=== PATIENT | male | born 1990 | race Caucasian/White ===

== ENCOUNTER 2022-10-26 06:50 | Day surgery (SDC) | payer OTHER ==
[2022-10-26] VITALS (223 sets, daily range): BP systolic 91–140; BP diastolic 39–96
[~2022-10-26] VITALS: Ht 188 cm; Wt 84.0 kg
--- NOTE | 2022-10-26 06:50 | NUR ---
Patient arrived to the ANR suite, identification and demographics confirmed. Patient to room 8, AAO, ambulatory, vitals obtained, ID/allergy/fall bands placed, changed into hospital gown, MARILYN hose, and non-slip socks. Procedure and timeline explained for treatment and discharge. All questions answered and the patient presents no concerns at this time.
[2022-10-26 08:07] LABS: BASO% 0.7 % (0-3); EOS% 2.5 % (0-8); HEMATOCRIT 40.4 % (39.0-50.0); HEMOGLOBIN 12.9 g/dl (14.0-18.0); IMMATURE GRANULOCYTES 0.4 % (0.0-5.0); LYMPH% 26.4 % (15-41); MEAN CELL VOLUME 90.8 fL CALC (80.0-100.0); MEAN CORPUSCULAR HGB CONC 31.9 g/dL CAL (32.0-36.0); NEUT# 3.29 thou/uL (1.82-7.42); RED BLOOD COUNT 4.45 mill/uL (4.70-6.10); RED CELL DISTRI WIDTH 12.7 % (11.5-15.5)
[2022-10-26 08:29] LABS: ALBUMIN 3.8 g/dL (3.2-5.0); ALKALINE PHOSPHATASE 55 u/l (38-126); ANION GAP 8 (6-22 (CALC)); BILIRUBIN, TOTAL 0.2 mg/dL (0.2-1.3); BUN 13 mg/dL (9-20); BUN/CREATININE RATIO 20 (12-20 (CALC)); CARBON DIOXIDE 31 mmol/l (22-30); CHLORIDE 101 mmol/l (95-108); CREATININE 0.6 mg/dL (0.7-1.3); GFR FOR AFR.AMER. > 60 ML/MIN (>=60 (CALC)); GFR OTHER RACES > 60 ML/MIN (>=60 (CALC)); POTASSIUM 3.7 mmol/l (3.5-5.1); SGOT/AST 25 u/l (17-59); SODIUM 137 mmol/l (137-146); TOTAL PROTEIN 6.3 g/dL (6.3-8.2)
--- NOTE | 2022-10-26 09:30 | NUR ---
Patient resting comfortably in bed. Easily aroused, maintains focus, and drifts back to sleep. No signs of active withdrawal or distress noted at this time. Continuous SPO2, rhythm, and respiratory monitoring initiated. IVF @ 250 mL/HR, room air, VSS.
--- NOTE | 2022-10-26 10:30 | NUR ---
MD at bedside with patient discussing treatment and answering any questions or concerns patient might have.
--- NOTE | 2022-10-26 11:14 | NUR ---
Induction Note Patient to ANR procedure room. Time out performed at 1114. Patient placed on monitors, Luciana hugger, bilateral wrist restraints applied for ET tube protection. Versed 5mg given IV push at 1115 Tourniquet applied to right arm Lidocaine 100mg given at 1116 IV push followed by Rocoronium 10mg at 1116 IV push and held for 90 seconds. Propofol bolus of 160mg given at 1117 IV push. Succinylcholine 80mg given IV push at 1117. Smooth intubation with 7.5 ETT. Positive CO2. Positive Auscultation for air exchange. Patient placed on ventilator for spontaneous ventilation. Placed on Propofol IV drip at 1118. OG inserted. Positive air on auscultation. Positive gastric content. Stomach washed at this time. Naltrexone 50mg given via OG tube with Clonidine 0.3 mg given via OG Tube. OG clamped for 45 minutes. Will monitor patient for symptoms of withdrawal and adjust propfol accordingly.
--- NOTE | 2022-10-26 12:15 | NUR ---
OG open note OG open at this time. Gastric content draining into drainage bag. OG to drain for 45 minutes. Propofol will be titrated down based on patient.
--- NOTE | 2022-10-26 13:00 | NUR ---
OG close note Stomach washed at this time. Naltrexone 50 mg with Clonidine 0.1 mg via OG tube. OG will be clamped for 45 minutes.
[2022-10-26] MEDS ORDERED: NALTREXONE50 MG PO (14:07)
[2022-10-26] MEDS ORDERED: CLONIDINE0.1 MG PO (14:07)
[2022-10-26] MEDS ORDERED: KLONOPIN2 MG PO (14:08)
--- NOTE | 2022-10-26 14:30 | NUR ---
OG close note Stomach washed at this time. Naltrexone 50 mg with Clonidine 0.1 mg via OG tube. OG will be clamped for 45 minutes.
--- NOTE | 2022-10-26 16:30 | NUR ---
OG close note Stomach washed at this time. Naltrexone 12.5 mg with Clonidine 0.2 mg via OG tube. OG will be clamped for 30 minutes.
--- NOTE | 2022-10-26 17:20 | NUR ---
Extubation note Closing medications given Benadryl 50mg IV push, Decadron 10mg IV push,Magnesium 4 grams IV, Zofran 8mg IV push, Octreotide 100mcg SC. Stomach washed out prior to extubation. Suctioned gastric content. OG removed. Patient extubated. Propofol Discontinued. Wrist restraints removed. Luciana hugger Removed. See ANR Moderate sedate recovery record for further notes and assessment.
--- NOTE | 2022-10-26 18:10 | NUR ---
Patient transferred to medical-surgical unit. Report given to receiving nurse at bedside. Head to toe assessment, treatment, medications, I/O, IV access reviewed with RN. All questions answered. IVF to continue at 100 ml/hr, on room air, no adventitious breath sounds. Safety precautions in place, bed locked and in lowest position, call light in reach. Handoff of care at the time this note.
--- NOTE | 2022-10-26 18:15 | NUR ---
PT TO MED SURG FROM ANR, REPORT RECIEVED FROM NURSE. PT IS DROWSY AWAKENED TO VOICE. PT HAS NO C/O PAIN AT THIS TIME. IV SITE # 20 RFA AND # [address] CLEAN AND INTACT WITH LR INFUSING AT 100 ML/HR. PT VSS. PT HAS URINAL AT BEDSIDE. PT HAS CALL LIGHT WISCHADIN REACH AND ALL SAFETY MEASURES IN PLACE AT THIS TIME.
--- NOTE | 2022-10-26 20:00 | NUR ---
RECEIVED REPORT FROM NURSE DIAN, PATIENT RESTING IN BED, BREATHING SHALLOW, UNLABORED SPO2 @ 9% , PATIENT DROWSY, S/P ANR PROCEDURE, ONGOING IV LR A100CC/HR INFUSING WELL ON RFA G 20 AND G 18 ON DUSTIN PATENT FLUSHES WELL, PATINET NOT IN DISTRESS, PATIENT VOMITTED X 1 WILL MEDICATE AND GEN BODY PAIN.BED ALARM IN PLACE.
--- NOTE | 2022-10-26 23:57 | NUR ---
PATIENT RESTING IN BED,EYES CLOSED, BREATHING EVEN UNLABORED, NOT IN DISTRESS, CALL LIGHT IN REACH, BED ALARM IN PLACE.
[2022-10-27] VITALS (7 sets, daily range): BP systolic 115–147; BP diastolic 56–78
--- NOTE | 2022-10-27 02:52 | NUR ---
PATIENT SAT UP AND VOMITTED X 1 BROWN LIQUID ABOUT 100CC, MOUTH SUCTIONED, PRN ZOFRAN GIVEN PATIENT C/O GEN BODY ACHES AND TEMP 100.8 PRN TYLENOL GIVEN.
--- NOTE | 2022-10-27 03:57 | NUR ---
WASH CLOTH APPLIED TO FOREHEAD, AND COLD PACK ON AXILLARY, WILL RECHECK TEMP.
--- NOTE | 2022-10-27 04:44 | NUR ---
REPEATED TEMPERATURE AND RECORDED.
--- NOTE | 2022-10-27 05:08 | NUR ---
TEMP RECHECKED 99.6f RECORDED.-
--- NOTE | 2022-10-27 06:59 | NUR ---
SPOKE TO DR ZAMUDIO NOTIFIED OF VOMITING AT 0200 AND FEVER AT 0352, REPEAT TEMP 101.5 ORDERED TO GIVE TYLENOL 650MG NOW.
[2022-10-27 07:37] LABS: BASO% 0.1 % (0-3); HEMATOCRIT 37.3 % (39.0-50.0); HEMOGLOBIN 12.4 g/dl (14.0-18.0); IMMATURE GRANULOCYTES 0.3 % (0.0-5.0); LYMPH% 7.1 % (15-41); MEAN CELL VOLUME 87.6 fL CALC (80.0-100.0); MEAN CORPUSCULAR HGB 29.1 pG CALC (26.0-32.0); MEAN CORPUSCULAR HGB CONC 33.2 g/dL CAL (32.0-36.0); MONO% 5.1 % (2-13); NEUT# 11.38 thou/uL (1.82-7.42); NEUT% 87.4 % (42-76); RED BLOOD COUNT 4.26 mill/uL (4.70-6.10); RED CELL DISTRI WIDTH 12.9 % (11.5-15.5)
--- NOTE | 2022-10-27 08:00 | NUR ---
PT IN BED RESTING WITH EYES CLOSED, AWAKENED TO VERBAL STIMULI. PT IS ALERT TO SELF AT THIS TIME, SPEECH IS GARBELED. PT HAS NO C/O PAIN AT THIS TIME. PT LUNGS CLEAR. BS ACTIVE AND ABD SOFT. PT IS USING URINAL AT BEDSIDE WITH STANDBY ASSIST. PT IV SITE TO # 20 TO RFA AND # [address], CLEAN AND INTACT WITH LR AT 100ML/HR INFUSING. PT HAS CALL LIGHT WITHIN REACH AND SAFETY MEASURES IN PLACE.
[2022-10-27 09:14] LABS: ALBUMIN 3.5 g/dL (3.2-5.0); ALKALINE PHOSPHATASE 63 u/l (38-126); ANION GAP 8 (6-22 (CALC)); BILIRUBIN, TOTAL 0.3 mg/dL (0.2-1.3); BUN 13 mg/dL (9-20); BUN/CREATININE RATIO 22 (12-20 (CALC)); CARBON DIOXIDE 27 mmol/l (22-30); CHLORIDE 105 mmol/l (95-108); CREATININE 0.6 mg/dL (0.7-1.3); GFR FOR AFR.AMER. > 60 ML/MIN (>=60 (CALC)); GFR OTHER RACES > 60 ML/MIN (>=60 (CALC)); POTASSIUM 3.3 mmol/l (3.5-5.1); SGOT/AST 25 u/l (17-59); SODIUM 137 mmol/l (137-146)
--- NOTE | 2022-10-27 09:20 | NUR ---
PT IN BED WITH HOB UP, VOMITING X 1 BROWN I COLOR. PT HAS NO C/O NAUSEA AT THIS TIME. PT POTASSIOM 3.3 AND ORDERS ENTERED FOR REPLACEMENT BY DAYANNA PINTO PER PROTOCOL. PT HAS TEMP OF 102, COLD PACK APPLIED, BALNKETS REMOVED AND ENCOURAGED PT TO DRINK FLUIDS SLOWLY. PT HAS CALL LIGHT WITHIN REACH AND ALL SAFETY MEASURES IN PLACE AT THIS TIME.
--- NOTE | 2022-10-27 10:10 | NUR ---
Patient's support person (SP) telephoned with overnight update and to begin discharge planning. All questions answered satisfactorily, no concerns presented. SP agreeable to discharge plan.
--- NOTE | 2022-10-27 10:50 | NUR ---
PT TEMP 102.6, DR. Rubio NOTIFIED. ACETAMINOPHEN 1000 MG GIVEN IV ORDERED. WILL CONTINUE TO MONITOR PT. PT HAS CALL LIGHT WITHIN REACH.
--- NOTE | 2022-10-27 12:00 | NUR ---
PT IN BED RESTING, AWAKE TO VOICE. PT HAS NO C/O PAIN AT THIS TIME. PT HAD IV POTASSIUM INFUSING AT THIS TIME. TEMP 101. ICE PACKS REAPPLIED AND BLANKETS REMOVED. DR. ZAMUDIO IS AWARE OF PT TEMP. PT HAS CALL MAUREEN [place].
--- NOTE | 2022-10-27 13:25 | NUR ---
Dr. Mckinnon at bedside and updated with overnight events and PRN medications, morning labs and vital signs, ANR watch repairer apprenticelicensed optician and current progress on discharge requirements. No plan for discharge today, patient and mother agreeable to updated POC.
[2022-10-27 15:53] LABS: BASO% 0.1 % (0-3); HEMATOCRIT 35.4 % (39.0-50.0); HEMOGLOBIN 11.8 g/dl (14.0-18.0); IMMATURE GRANULOCYTES 0.3 % (0.0-5.0); LYMPH% 9.4 % (15-41); MEAN CELL VOLUME 87.6 fL CALC (80.0-100.0); MEAN CORPUSCULAR HGB 29.2 pG CALC (26.0-32.0); MEAN CORPUSCULAR HGB CONC 33.3 g/dL CAL (32.0-36.0); MONO% 7.4 % (2-13); NEUT# 11.14 thou/uL (1.82-7.42); NEUT% 82.8 % (42-76); RED BLOOD COUNT 4.04 mill/uL (4.70-6.10); RED CELL DISTRI WIDTH 12.9 % (11.5-15.5)
--- NOTE | 2022-10-27 16:03 | NUR ---
PT IN BED RESTING. PT CONTINUES TO HAVE TEMP OF 100.9, LR INFUSING @ 150 ML/HR AFTER ICING FLUIDS. BEAR HUGGER ON PT, SETTING IN COOL AIR. PT HAS NO C/O PAIN AT THIS TIME. PT HAS CALL LIGHT WITHIN REACH.
--- NOTE | 2022-10-27 16:33 | NUR ---
PT TRANSFERED TO RM 279, REPORT GIVEN TO PILAR ALAN.
[2022-10-27 16:36] LABS: ALBUMIN 3.5 g/dL (3.2-5.0); ALKALINE PHOSPHATASE 64 u/l (38-126); ANION GAP 9 (6-22 (CALC)); BILIRUBIN, TOTAL 0.3 mg/dL (0.2-1.3); BUN 11 mg/dL (9-20); BUN/CREATININE RATIO 19 (12-20 (CALC)); CARBON DIOXIDE 25 mmol/l (22-30); CHLORIDE 107 mmol/l (95-108); CREATININE 0.6 mg/dL (0.7-1.3); GFR FOR AFR.AMER. > 60 ML/MIN (>=60 (CALC)); GFR OTHER RACES > 60 ML/MIN (>=60 (CALC)); MAGNESIUM 1.9 mg/dL (1.6-2.3); POTASSIUM 3.5 mmol/l (3.5-5.1); SGOT/AST 20 u/l (17-59); SODIUM 138 mmol/l (137-146); TOTAL PROTEIN 5.8 g/dL (6.3-8.2)
--- NOTE | 2022-10-27 20:30 | NUR ---
RECIEVED REPORT FROM DAYSHIFT NURSE. PT IS LAYING IN BED SLEEPING. ADVISED PT OF CJANGE OF NURSE FOR THE NIGHT. PT HAS NO COMPLAINTS AT THIS TIME. SAFETY PRECAUTIONS IN PLACE AND CALL LIGHT WITHIN REACH.
--- NOTE | 2022-10-28 00:30 | NUR ---
PT IS SLEEPING COMFORTABLY IN BED. PT CHOWS NO SIGNS OF PAIN OR DISCOMFORT AT THIS MOMENT. SAFETY PRECAUTIONS IN PLACE AND CALL LIGHT WITHINREACH.
--- NOTE | 2022-10-28 07:10 | NUR ---
PERFROMED BEDSIDE REPORT WITH NIGHTSHIFT NURSE. PT NOTED LAYING IN BED ON LEFT SIDE RESTING COMFORTABLY AT THIS TIME. PT ON RM AIR. NO S/S OF DISTRESS. CALL LIGHT WITHIN REACH AND SAFETY PRECAUTIONS IN PLACE.
[2022-10-28 07:34] VITALS: BP 133/77
--- NOTE | 2022-10-28 08:39 | NUR ---
PT WAS NOT ABLE TO HOLD DOWN BREAKFAST, HAD AN EPISODE OF VOMITTING SHORTLY AFTER. PT IS UP OUT OF BED NOW, POLE PEELING MACHINE OPERATOR ASSISTING WITH SHOWER. ANR RESIDENTIAL YOUTH COUNSELOR ZAK WAS NOTIFIED OF PT STATUS. CALL LIGHT WITHIN REACH AND SAFETY PRECAUTIONS IN PLACE.
--- NOTE | 2022-10-28 10:29 | NUR ---
IV site discontinued, cath intact. No edema , no redness, voices no discomfort. Discharge instructions given. Patient verbalizes understanding of same. Discharged in stable condition via Wheelchair to Home with staff. All belongings sent with pt.
== END 2022-10-28 10:23 | disposition home or self-care (01) | DRG 897 ==
LOC: MS2 06:50 → ANR 06:50 → MS2 16:25 → ANR 10-28 10:23
PROVIDERS: ATTEND Anesthesiology Critical Care Medicine
DX: F11.20 Opioid dependence, uncomplicated (principal)
CPT/HCPCS: J0131; J2060; J2354; J3475; S0164